=== PATIENT | female | born 1940 | race Caucasian/White ===

== ENCOUNTER 2016-07-08 05:57 | Day surgery (SDC) | payer MEDICARE, OTHER ==
[~2016-07-08] VITALS: Ht 175.3 cm; Wt 65.8 kg
[~2016-07-08 05:57] MED LIST: BACLOFEN10 MG PO; BISOPROLOL-HCT1 EAC1 PO; CEFUROXIME250 MG PO; COLACE100 MG PO; COMBIVENT RESPIM4 GM INH; EVISTA60 MG PO; GABAPENTIN100 MG PO; K-DUR20 MEQ PO; LASIX40 MG PO; NEXIUM40 MG PO; OXYCODONE HCL5 MG PO; PROAIR HFA8.5 GM INH; ROBAXIN500 MG PO; ULTRAM50 MG PO; VITAMIN D3400 UNI1 PO; ZIAC 2.5/6.25 M1 TAB PO; ZOLOFT50 MG PO
[2016-07-08 07:16] LABS: BASOPHILS 0.3 % (0.0-2.0); EOSINOPHILS 0.3 % (0-7); HEMOGLOBIN 12.5 g/dL (12-16); IMMATURE GRANULOCYTES 0.6 % (0-5); LYMPHOCYTES 36.4 % (15-50); MCH 28.5 pg (26.0-34.0); MCHC 32.9 g/dL (31.0-37.0); MCV 86.8 fL (80.0-100.0); MEAN PLATELET VOLUME 10.9 fL (7.4-10.4); MONOCYTES 12.1 % (2-11); NEUTROPHILS 50.3 % (40-80); PLATELET COUNT 181 10x3/uL (130-400); RBC 4.38 10x6/uL (4.00-5.40); RDW 14.2 % (11.5-14.5); WBC 3.2 10x3/uL (4.8-10.8)
[2016-07-08 07:24] LABS: ANION GAP 12.1 mmol/L (8-16); CALCIUM 9.1 mg/dL (8.5-10.1); CARBON DIOXIDE 29.7 mmol/L (21.0-32.0); CREATININE - SERUM 0.8 mg/dL (0.6-1.3); POTASSIUM - SERUM 3.8 mmol/L (3.5-5.1)
[2016-07-08 07:33] VITALS: BP 141/68; Ht 175.3 cm; Wt 65.8 kg
[2016-07-08] MEDS ORDERED: HYDROCODONE-APA1 TAB PO (10:12)
--- NOTE | 2016-07-11 13:33 | OP ---
PATIENT NAME: ELIDA MCKEON MEDICAL RECORD: [id number] :42 LOCATION:D.OPS ADMISSION DATE: SURGEON: SUSHIL BARROS MD DATE OF OPERATION: 07/08/2016 PREOPERATIVE DIAGNOSES: 1. Right lower quadrant incisional hernia. 2. Chronic obstructive pulmonary disease. 3. Hypertension. 4. Osteoporosis. 5. Arthritis. 6. History of deep venous thrombosis. POSTOPERATIVE DIAGNOSES: 1. Right inguinal hernia. 2. Right lower quadrant incisional hernia. 3. Chronic obstructive pulmonary disease. 4. Hypertension. 5. Osteoporosis. 6. Arthritis. 7. History of deep venous thrombosis. PROCEDURE: Right inguinal hernia repair with medium PHS mesh. SURGEON: Sushil Barros MD REPORT OF PROCEDURE: The patient's right groin was prepped and draped in sterile fashion. The patient had an oblique incision in the right lower quadrant already from previous open appendectomy. We used the medial aspect of this incision as we dissected through the subcutaneous tissues, we got down to the fascia. I could see that we were actually overlying the patient's inguinal canal. I undermined the subcutaneous tissues overlying the fascia in all directions just to assure there were no other signs of any hernia defects through the anterior abdominal wall and I saw none. I opened up the inguinal canal from the external opening laterally and once inside, I was able to feel that the patient had a moderate sized indirect hernia defect. The patient's round ligament was elevated. This was ligated proximally and distally. As I elevated this through the wound, I could feel the hernia sac. The round ligament and hernia sac were pushed back down into the abdominal cavity. The preperitoneal space of Retzius was opened up in all directions and a medium PHS mesh was inserted, it was sutured down with a running 0 Vicryl from the pubic symphysis along the inguinal ligament. We then placed multiple interrupted sutures on the shelving edge again using 0 Vicryls. Any evidence of nerve structure which was found in the area was ligated. Two separate nerves were definitively found and were felt to be branches of the ilioinguinal nerve. We then irrigated out the wound with normal saline and assured there was no sign of any bleeding. The external oblique fascia was then closed with running 2-0 Vicryl, Rhoda's was closed with interrupted 3-0 Vicryls and the skin was closed with running subcutaneous 5-0 Monocryl. A 10 mL of 0.25% Marcaine with epinephrine were infused into the surrounding tissues and the wound was dressed appropriately. COMPLICATIONS: None. CONDITION: Stable. OPERATIVE REPORT [id number] ELIDA MCKEON ANESTHESIA: General endotracheal and local. BLOOD LOSS: Minimal. TRANSINT:[id number] Voice Confirmation ID: [id number] DOCUMENT ID: [id number] SUSHIL BARROS MD at 1333 CC: LAYNE GARZA M.D.,[facility] and ABBIE MCMAHON DO [id number] DICTATION DATE: 07/08/16 1017 DRUPAL PHP DEVELOPER: 07/08/16 1212 [facility] 07/08/16 [id number] [place] [address]
== END 2016-07-08 14:35 | disposition home or self-care (01) ==
LOC: D.OPS 05:57 → D.PAN 08:45 → D.OPS 08:45
PROVIDERS: Surgery
DX: K40.90 Unilateral inguinal hernia, without obstruction or gangrene, not specified as recurrent (principal); K43.2 Incisional hernia without obstruction or gangrene; J44.9 Chronic obstructive pulmonary disease, unspecified; I10 Essential (primary) hypertension; M81.0 Age-related osteoporosis without current pathological fracture; M19.90 Unspecified osteoarthritis, unspecified site; Z86.718 Personal history of other venous thrombosis and embolism

== ENCOUNTER → 2016-07-09 16:05 | Outpatient (CLI) | payer MEDICARE, OTHER ==
[2016-07-08 07:33] VITALS: BMI 21.4
[~2016-07-09 16:05] MED LIST changes: +HYDROCODONE-APA1 TAB PO
== END | disposition home or self-care (01) ==
LOC: D.US 15:30
DX: G89.18 Other acute postprocedural pain (principal); M79.605 Pain in left leg; M79.604 Pain in right leg

== ENCOUNTER → 2016-11-26 17:02 | Outpatient (CLI) | payer MEDICARE, OTHER ==
[2016-07-08 07:33] VITALS: BMI 21.4
== END | disposition home or self-care (01) ==
LOC: D.MAMMO 16:00
DX: Z12.31 Encounter for screening mammogram for malignant neoplasm of breast (principal)

== ENCOUNTER → 2016-12-08 14:53 | Outpatient (CLI) | payer MEDICARE, OTHER ==
[2016-07-08 07:33] VITALS: BMI 21.4
[2016-12-08 15:23] LABS: BASOPHILS 0.3 % (0-2); HEMATOCRIT 39.3 % (36.0-48.0); IMMATURE GRANULOCYTES 0.3 % (0-5); LYMPHOCYTES 32.1 % (15-50); MCH 29.5 pg (26.0-34.0); MCHC 33.1 g/dL (31.0-37.0); MCV 89.1 fL (80.0-100.0); MEAN PLATELET VOLUME 11.4 fL (7.4-10.4); MONOCYTES 8.9 % (2-11); NEUTROPHILS 57.4 % (40-80); PLATELET COUNT 193 10x3/uL (130-400); RBC 4.41 10x6/uL (4.00-5.40); RDW 13.8 % (11.5-14.5); WBC 3.2 10x3/uL (4.8-10.8)
[2016-12-08 16:44] LABS: ERYTHROCYTE SEDIMENTATION RATE 10 mm/hr (0-30)
== END | disposition home or self-care (01) ==
LOC: D.LABREF 14:53
PROVIDERS: Orthopaedic Surgery
DX: M25.511 Pain in right shoulder (principal)

== ENCOUNTER → 2016-12-31 09:24 | Outpatient (CLI) | payer MEDICARE, OTHER ==
[2016-07-08 07:33] VITALS: BMI 21.4
== END | disposition home or self-care (01) ==
LOC: D.RAD 09:24
DX: R13.10 Dysphagia, unspecified (principal)

== ENCOUNTER 2017-03-06 09:47 | Emergency (ER) | payer MEDICARE, OTHER ==
[2016-07-08 07:33] VITALS: BMI 21.4
== END 2017-03-06 14:08 | disposition home or self-care (01) ==
LOC: D.ER 09:47
DX: S60.812A Abrasion of left wrist, initial encounter (principal); W01.0XXA Fall on same level from slipping, tripping and stumbling without subsequent striking against object, initial encounter; Y93.89 Activity, other specified; Y92.029 Unspecified place in mobile home as the place of occurrence of the external cause; S40.011A Contusion of right shoulder, initial encounter; S20.229A Contusion of unspecified back wall of thorax, initial encounter; S60.212A Contusion of left wrist, initial encounter; S42.411A Displaced simple supracondylar fracture without intercondylar fracture of right humerus, initial encounter for closed fracture; F17.200 Nicotine dependence, unspecified, uncomplicated

== ENCOUNTER → 2017-03-09 10:00 | Outpatient (CLI) | payer MEDICARE, OTHER ==
[2016-07-08 07:33] VITALS: BMI 21.4
== END | disposition home or self-care (01) ==
LOC: D.CT 10:00
DX: M25.521 Pain in right elbow (principal)

== ENCOUNTER 2017-03-18 10:33 | Emergency (ER) | payer MEDICARE, OTHER ==
[2016-07-08 07:33] VITALS: BMI 21.4
== END 2017-03-18 11:41 | disposition home or self-care (01) ==
LOC: D.ER 10:33
DX: M79.621 Pain in right upper arm (principal); R60.9 Edema, unspecified

== ENCOUNTER → 2017-03-23 08:25 | Outpatient (CLI) | payer MEDICARE, OTHER ==
[2016-07-08 07:33] VITALS: BMI 21.4
== END | disposition home or self-care (01) ==
LOC: D.RAD 03-19 10:30
DX: R10.13 Epigastric pain (principal); R12 Heartburn

== ENCOUNTER → 2017-06-18 10:02 | Outpatient (CLI) | payer MEDICARE, OTHER ==
[2016-07-08 07:33] VITALS: BMI 21.4
== END | disposition home or self-care (01) ==
LOC: D.MRI 10:02
DX: M54.12 Radiculopathy, cervical region (principal)

== ENCOUNTER 2017-10-24 20:26 | Emergency (ER) | payer MEDICARE, OTHER ==
[~2017-10-24] VITALS: Ht 175.3 cm; Wt 65.5 kg
[2017-10-24 20:51] VITALS: Ht 175.3 cm; Wt 65.5 kg
[2017-10-24] MEDS ORDERED: ROBAXIN500 MG PO (23:27)
[2017-10-24 23:42] VITALS: BP 118/74
== END 2017-10-24 23:41 | disposition home or self-care (01) ==
LOC: D.ER 20:26
DX: S60.212A Contusion of left wrist, initial encounter (principal); W22.8XXA Striking against or struck by other objects, initial encounter; Y93.89 Activity, other specified; Y92.019 Unspecified place in single-family (private) house as the place of occurrence of the external cause; I10 Essential (primary) hypertension; J44.9 Chronic obstructive pulmonary disease, unspecified

== ENCOUNTER → 2017-11-13 14:29 | Outpatient (CLI) | payer MEDICARE, OTHER ==
[2017-10-24 20:51] VITALS: BMI 21.3
== END | disposition home or self-care (01) ==
LOC: D.MRI 14:29
DX: S52.531A Colles' fracture of right radius, initial encounter for closed fracture (principal)

== ENCOUNTER → 2018-11-10 13:15 | Outpatient (CLI) | payer MEDICARE, OTHER ==
[2017-10-24 20:51] VITALS: BMI 21.3
== END | disposition home or self-care (01) ==
LOC: D.CT 13:15 → D.MAMMO 15:00
PROVIDERS: ATTEND Family Medicine
DX: Z12.31 Encounter for screening mammogram for malignant neoplasm of breast (principal); R59.0 Localized enlarged lymph nodes

== ENCOUNTER → 2018-11-26 11:02 | Outpatient (CLI) | payer MEDICARE, OTHER ==
[2017-10-24 20:51] VITALS: BMI 21.3
== END | disposition home or self-care (01) ==
LOC: D.US 11:02
PROVIDERS: ATTEND Surgery
DX: R59.0 Localized enlarged lymph nodes (principal); I99.8 Other disorder of circulatory system

== ENCOUNTER 2018-12-10 05:18 | Day surgery (SDC) | payer MEDICARE, OTHER ==
[~2018-12-10] VITALS: Ht 175.3 cm; Wt 68.9 kg
[~2018-12-10 05:18] MED LIST changes: +[UNRECOGNIZED DRUG - OTHER]
[2018-12-10 05:42] LABS: HEMATOCRIT 39.1 % (36.0-48.0); HEMOGLOBIN 13.2 g/dL (12-16); MCH 30.3 pg (26.0-34.0); MCHC 33.8 g/dL (31.0-37.0); MCV 89.9 fL (80.0-100.0); MEAN PLATELET VOLUME 10.6 fL (7.4-10.4); RBC 4.35 10x6/uL (4.00-5.40); RDW 13.8 % (11.5-14.5); WBC 3.6 10x3/uL (4.8-10.8)
[2018-12-10] MEDS ORDERED: MULTI-DAY VITAM1 TAB PO (06:23)
[2018-12-10 06:27] VITALS: BP 153/52; Ht 175.3 cm; Wt 68.9 kg
[2018-12-10] MEDS ORDERED: HYDROCODON-ACE1 EA10 PO (08:39)
--- NOTE | 2018-12-10 09:52 | NUR ---
0930 PT STATES THAT HER PAIN LEVEL IS CURRENTLY AT 5 AND SHE IS REQUESTING PAIN MEDICATION.
--- NOTE | 2018-12-10 11:33 | NUR ---
1048 PT UP TO BATHROOM WITH MINIMAL ASSISTANCE.
--- NOTE | 2018-12-10 11:34 | NUR ---
1106 IV DC'D. CATHETER INTACT. NO BLEEDING AT SITE. BANDAID APPLIED.
--- NOTE | 2018-12-10 12:15 | OP ---
PATIENT NAME: ELIDA MCKEON MEDICAL RECORD: [id number] :41 LOCATION:D.OPS ADMISSION DATE: SURGEON: MELINA BARROS MD DATE OF OPERATION: 12/10/2018 PREOPERATIVE DIAGNOSES: 1. Right inguinal bulge/cyst. 2. Chronic obstructive pulmonary disease. 3. Hypertension. POSTOPERATIVE DIAGNOSES: 1. Right inguinal lymphadenopathy. 2. Right femoral hernia. 3. Chronic obstructive pulmonary disease. 4. Hypertension. PROCEDURE: 1. Excision of right inguinal lymph node. 2. Right femoral hernia repair. SURGEON: Melina Barros MD REPORT OF PROCEDURE: The patient's right groin was prepped and draped in sterile fashion. An oblique incision was made overlying the area of tenderness. Electrocautery was used to dissect through the subcutaneous tissues and we encountered an enlarged lymph node. The lymph node was excised using electrocautery and sent off for permanent specimen. The lymph node itself was about 1.5 cm in greatest diameter. As we inspected the space, I could see there was a small fatty bulge present. As we cleared this off, we could see this was a femoral hernia. This had a tight opening at its base. We were eventually able to reduce this hernia and push it back into position. The hernia defect was inspected and I felt around for the vasculature and could not feel it. The hernia defect was then reapproximated transversely using interrupted 0 Prolenes by trying to connect any fascial tissue that was present. At the conclusion of this, we used 4 sutures and there was good approximation of the tissue and the hernia orifice was obliterated. We then irrigated out the wound with normal saline and assured there was no sign of any bleeding. The subcutaneous tissues were reapproximated with interrupted 3-0 Vicryl and the skin was closed with running subcutaneous 5-0 Monocryl. COMPLICATIONS: None. CONDITION: Stable. ANESTHESIA: General endotracheal and local. BLOOD LOSS: Minimal. TRANSINT:[id number] Voice Confirmation ID: [id number] DOCUMENT ID: [id number] OPERATIVE REPORT [id number] ELIDA MCKEON MELINA BARROS MD at 1215 CC: ABBIE MCMAHON [id number] DICTATION DATE: 12/10/18 0847 TEMPERING KILN TENDER: 12/10/18 0901 [facility] 12/10/18 [facility] [address] [place] [address]
== END 2018-12-10 11:28 | disposition home or self-care (01) ==
LOC: D.OPS 05:18 → D.PAN 08:00 → D.OPS 11:28
PROVIDERS: Anesthesiology; ATTEND Surgery
DX: R59.0 Localized enlarged lymph nodes (principal); K41.90 Unilateral femoral hernia, without obstruction or gangrene, not specified as recurrent; J44.9 Chronic obstructive pulmonary disease, unspecified; I10 Essential (primary) hypertension; Z01.812 Encounter for preprocedural laboratory examination

== ENCOUNTER → 2019-02-07 18:24 | Outpatient (CLI) | payer MEDICARE, OTHER ==
[2018-12-10 06:27] VITALS: BMI 22.5
[~2019-02-07 18:24] MED LIST changes: +HYDROCODON-ACE1 EA10 PO; +MULTI-DAY VITAM1 TAB PO
== END | disposition home or self-care (01) ==
LOC: D.LABREF 18:24
PROVIDERS: ATTEND Urology
DX: N39.0 Urinary tract infection, site not specified (principal)

== ENCOUNTER 2019-03-10 09:16 | Inpatient (IN) | payer MEDICARE, OTHER ==
[~2019-03-10] VITALS: Ht 170.2 cm; Wt 77.3 kg
[2019-03-10 09:43] LABS: BASOPHILS 0.3 % (0-2); HEMATOCRIT 40.9 % (36.0-48.0); HEMOGLOBIN 13.6 g/dL (12-16); LYMPHOCYTES 31.9 % (15-50); MCH 30.3 pg (26.0-34.0); MCHC 33.3 g/dL (31.0-37.0); MCV 91.1 fL (80.0-100.0); MEAN PLATELET VOLUME 10.5 fL (7.4-10.4); MONOCYTES 11.1 % (2-11); NEUTROPHILS 55.7 % (40-80); PLATELET COUNT 177 10x3/uL (130-400); RBC 4.49 10x6/uL (4.00-5.40); RDW 13.3 % (11.5-14.5); WBC 3.1 10x3/uL (4.8-10.8)
[2019-03-10 09:49] LABS: ANION GAP 10.7 mmol/L (8-16); CALCIUM 9.5 mg/dL (8.5-10.1); CARBON DIOXIDE 29.5 mmol/L (21.0-32.0); CREATININE - SERUM 0.8 mg/dL (0.6-1.3); POTASSIUM - SERUM 4.2 mmol/L (3.5-5.1)
[2019-03-10 10:34] VITALS: BP 166/84; BMI 23.7
--- NOTE | 2019-03-10 17:06 | OP ---
PATIENT NAME: ELIDA MCKEON MEDICAL RECORD: [id number] :41 LOCATION:D.OPS ADMISSION DATE: SURGEON: SUDHIR DUVALL MD DATE OF OPERATION: 03/10/2019 SURGEON: Sudhir Duvall MD ANESTHESIA: General anesthesia by Joshua Caromna CRNA DIAGNOSES: 1. Female stress urinary incontinence. 2. 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 3. Rectocele Tupelo-Walker grade II with incomplete rectal evacuation. PROCEDURES: 1. Cystoscopy. 2. Pubovaginal sling with [employer] Obtryx mesh graft. 3. Cystocele repair using 8 x 12 cm Coloplast axis cadaveric dermis. 4. Rectocele repair by levator ani muscle plication. FINDINGS: On cystoscopy, single ureteral orifices bilaterally. No bladder tumors. No bladder injury. ESTIMATED BLOOD LOSS: Minimal. CLINICAL HISTORY: This is a 78-year-old female, G3, P3, A0, who is post-hysterectomy. She had a hysterectomy at age 32 and a cystocele repair at age 37. She has issues with recurrent urinary tract infections 4-5 per year. She also has daytime urinary frequency as well as nocturia and urge incontinence. She also describes stress urinary incontinence. She has difficulty emptying her bladder. With respect to the bowels, there is no fecal incontinence, but she has the feeling that she does not fully empty the rectum after defecation. She has chronic constipation for which she uses Colace. On physical examination, she had a vulvar atrophy. She had a hypermobile urethra with stress urinary incontinence when she coughed. There is a positive Cholo test. There is also a midline cystocele Tupelo-Walker grade II and a Tupelo-Walker grade II rectocele. Her postvoid residual was 263 mL. She comes now to have a cystocele repair in order to lift the bladder back up to the correct axis to help with bladder emptying. She will also be having a pubovaginal sling to correct the stress urinary incontinence. Finally, she will have a rectocele repair. Risks of mesh use in the pubovaginal sling include graft infection, graft erosion, graft extrusion into the vagina, dyspareunia and pelvic pain. Adverse potential outcomes include urinary retention, persistence of incomplete bladder emptying, exacerbation of urge urinary incontinence, and persistence of stress incontinence. She wishes to proceed with surgery. SHE IS ALLERGIC TO ASPIRIN AND MORPHINE. She was given Ancef 2 grams IV supervisor dehydrogenation to the OR. DESCRIPTION OF PROCEDURE: The patient was given induction of general anesthesia in supine position. She was then placed in the lithotomy position and prepped and draped. A weighted speculum was used to hold the posterior vaginal wall down. The Elena catheter was placed into the bladder and put to bag drainage. A #1 nylon stay sutures were used to hold the labia majora laterally. These were anchored to the medial thighs. The anterior vaginal wall shows some scarring from her previous surgery. The anterior vaginal wall was infiltrated OPERATIVE REPORT [id number] ELIDA MCKEON with vasopressin solution. Twenty units of vasopressin was dissolved in 100 mL of injectable normal saline. This was used for hydrodissection. A transverse incision was then made at the level of the bladder neck. The dissection was performed using Metzenbaum scissors. We cut through the scar tissue under the urethra and at the level of the bladder neck. We went laterally to perforate through the pubocervical ligaments. Anteriorly, we entered into the space of Retzius. This was cleared. Posteriorly, we entered the presacral space with the ischial spines and the attached sacrospinous ligaments. We then put our four 2-0 Prolene Capio suspensory sutures in. The posterior pair went through the sacrospinous ligament, 1 cm medial to the ischial spines. The purpose of keeping the placement 1 cm to the ischial spine was to avoid hitting the internal pudendal artery and nerves. The anterior pair of suspensory sutures went into Musa's ligament. These 4 suspensory sutures were then placed. We then landmarked the location of the transobturator passage of the [employer] Obtryx graft. The insertion of the adductor longus muscle onto the descending pubic ramus was identified. Inferior to the body of the adductor longus muscle, a armin was made lateral to the descending pubic ramus with a marking pen. A stab incision was made here. The helical trocars were passed through this incision, deep to the descending pubic ramus and exiting at the anterior margin of the obturator membrane. The tip of the helical trocar then came out through the vaginal dissection space. Here the end of the graft was attached to the helical trocar. The helical trocars were then withdrawn, resulting in transobturator passage of the graft arms. There was a tab indicating the midpoint of the graft. This tab was placed under the mid urethra. At this point, the tab was then cut off by cutting its retaining stitch. The Elena catheter was removed. We performed cystoscopy using a 17-Australian cystoscope. No bladder injury was identified. No bladder tumors were seen. The bladder was filled with normal saline. By putting pressure suprapubically, we could see leakage of urine per the urethra. We gradually increased the tension on the graft until there was very minimal leakage per the urethra with suprapubic pressure. I tried not to completely occlude the urethra as she already has an issue with incomplete bladder emptying. At this point, the 8 x 12 cadaveric dermis graft for the cystocele repair was pulled out of its package. I marked out an arch on one of the long edges of the graft. This apex of the arch was 6 cm distance from the opposite edge of the graft. This arch serves to prevent occlusion of the rectum, which great difficulty with defecation. The graft was then hydrated in saline containing gentamicin solution. The four arms of the graft were placed and had the 4 suspensory sutures placed through. The graft was then tied down into position. The graft arms of the pubovaginal sling were cut where they exited the skin. The inguinal incisions for the graft arms were closed using simple interrupted 4-0 Vicryl. Running 4-0 Monocryl was used to close the transverse anterior vaginal incision. This completed the pubovaginal sling and cystocele repair. I placed a Elena catheter back into the bladder to drain the bladder during the rest of the surgery. For the rectocele repair, the posterior vaginal wall was infiltrated with Pitressin solution. An elliptical excision line was marked out with 1 apex of the ellipse at the vaginal introitus posteriorly. This area was cut out using a #15 blade and undermined using Metzenbaum scissors. The edges of this incision were then undermined using Metzenbaum scissors, which developed the plane between the anterior surface of the rectum and the undersurface of the posterior vaginal wall. We continued the dissection cranially and also laterally on each side. Using blunt dissection with the fingers, the levator ani muscles on OPERATIVE REPORT [id number] ELIDA MCKEON either side of the rectum were exposed. A 2-0 Prolene sutures were then placed using the [employer] suture route cdl driver through the levator ani muscles. This formed a horizontal mattress when tied. I started at the most cranial portion of our dissection. Once this suture was tied down, then four other sutures were placed successively closer to the vaginal introitus. The last suture actually reconstructed the perineal body. With these mattress sutures having been placed and tied down, the posterior vaginal wall was closed using running 4-0 Monocryl. Vaginal packing consisting of 2-inch Kerlix infiltrated with estrogen cream was placed into the vagina. This will be removed prior to her going home today. The Elena catheter was removed. This was for a voiding trial. The stay sutures were removed. The patient was awakened and brought to the recovery room. TRANSINT:[id number] Voice Confirmation ID: [id number] DOCUMENT ID: [id number] SUDHIR DUVALL MD at 1706 CC: [id number] DICTATION DATE: 03/10/19 161 STAMPING MACHINE OPERATOR: 03/10/19 1704 [facility] [address] [id number]
--- NOTE | 2019-03-10 18:55 | NUR ---
RECEIEVED FROM OP DEPT. ALERT AND ORIENTED X4. ACCOMPANIED BY FRIEND. PT LIVES ALONE. RESP EVEN AND NONLABORED. V/S STABLE. DENIES PAIN. REPORTS SOME NAUSEA, MEDICATED WITH ZOFRAN PRIOR TO ARRIVING. BRUISES NOTED TO BUE AND BUE ARE DISCOLORED BROWNISH AND DRY/WRINKLED. LR @ 30 ML/HR INFUSING IN LT FOREARM WITHOUT DIFF. DISPOSABLE PANTIES ON AND SANITARY PAD WITH BLOOD TINGED DRAINAGE NOTED. PAD CHANGED AT THIS TIME. SR ELEVATED X2. CL IN REACH.
--- NOTE | 2019-03-10 19:17 | NUR ---
[address] DUVALL VIA PHONE. NEW ORDERS NOTED FOR 23 HOUR OBSERVATION AND PAIN MANAGEMENT. PT REMAINS DROWSY AND REPORTS PAIN 10. SLEEPING.
[2019-03-10 21:15] VITALS: BP 141/62; BMI 26.7
[2019-03-10 23:47] VITALS: BP 136/72
--- NOTE | 2019-03-11 00:04 | NUR ---
HAS BEEN UP TO BR TO VOID A COUPLE OF TIMES. SMALL AMOUNT OF URINE NOTED, APPROX 50 ML ALONG WITH BLOODY VAGINAL DRAINAGE. STATES SHE FEELS LIKE HER BLADDER ISNT EMPTYING. REPORTS AFTER LAST SURGERY SHE HAD TO HAVE A CATHETER FOR 8 WEEKS.
--- NOTE | 2019-03-11 02:00 | NUR ---
PT C/O PAIN IN BLADDER AND STATES SHE FEELS LIKE BLADDER IS FULL. BLADDER SCAN PERFORMED AND 814 ML NOTED. DAREK SCHAFFER HAD REPORTED TO THIS DIRECTOR OF CAMPUS RECREATION THAT DR DUVALL SAID PT COULD HAVE HA CATH IF UNABLE TO VOID/RETENTION. 16 FR HA CATH INSERTED WITH IMMEDIATE RETURN OF 875 ML OF CLEAR YELLOW URINE. PT ARABELLA WELL AND STATES SHE ISNT HURTING NOW. WILL CONT TO MONITOR.
[2019-03-11 04:00] VITALS: BP 145/68
--- NOTE | 2019-03-11 04:10 | NUR ---
RESTING QUIETLY. NO DISTRESS. HA CATH PATENT AND DRAINING CLEAR YELLOW URINE. CL IN REACH.
--- NOTE | 2019-03-11 07:10 | NUR ---
REPORT RECEIVED FROM MUSEUM PREPARATOR AND PATIENT CARE ASSUMED. PATIENT LAYING IN BED ON BACK AWAKE, ALERT AND ORIENTED X 4. PATIENT STATES THAT SHE IS VERY SORE IN HER RECTAL AND PERINEAL AREA. PATEINT DECLINES PAIN RX AT THIS TIME. WILL CONTINUE WITH PLAN OF CARE. SR UP X 2 BED IN LOW POSITION AND CALL LIGHT IN REACH.
[2019-03-11 08:00] VITALS: BP 138/84
--- NOTE | 2019-03-11 09:15 | NUR ---
CALLED TO PATIENTS ROOM. PATIENT STATES THAT SHE IS HURTING AT A '10" AND ALSO STATES THAT SHE CANNOT BE DCD TODAY BECAUSE OF HER PAIN , WEAKNESS AND SHE LIVES ALONE. TOLD PATIENT THAT I WOULD INFORM PHYSICIAN AND EMS DRIVER. MEDICATED PATIENT PER MAR WITH DILAUDED IV AND REPOSITIONED FOR COMFORT. SR UP X 2 BED IN OW POSITION AND CALL LIGHT IN REACH.
--- NOTE | 2019-03-11 10:00 | NUR ---
PATIENT LAYING IN BED ON BACK WITH EYES CLOSED AND BREATHING EVENLY. WILL CONTINUE TO MONITOR. SR UP X 2 BED IN LOW POSITION AND CALL LIGHT INR EACH.
[2019-03-11 11:30] VITALS: BP 140/87
--- NOTE | 2019-03-11 12:15 | NUR ---
PATIENT STATED EARLIER THIS AM THAT SHE FEELS TOO WEAK AND IN TOO MUCH PAIN TO BE DCD TO HOME FOR SELF CARE. PATIENT STATES THAT SHE LIVES ALONE AND WOULD NOT BE ABLE TO TAKE CARE OF HERSELF. PATIENT MET WITH JESICA CELL PREPARER AND JESICA AGREED THAT PATIENT IS NOT SAFE TO GO HOME TO BE ABLE TO CARE FOR HERSELF. CALLED AND SPOKE WITH DR DUVALL ON PHONE. INFORMED DR DUVALL OF SITUATION. DR DUVALL STATED TO DC DISCHARGE ORDER AND CONSULT MEDICAL. THIS NURSE INFORMED THAT DR BOYD ON THIS WEEK. V/O RECEIVED TO CONSULT DR BOYD. SPOKE WITH ROBERTO FRYE ON PHONE AND INFORMED OF CONSULT. AFTER PHONE CALL, DR BOYD ON UNIT AND INFORMED HIM WELL.
--- NOTE | 2019-03-11 14:00 | NUR ---
PATIENT COMPLAINS OF PAIN AND NUASEA. MEDICATED PER MAR WITH DILAUDED AND ZOFRAN IV. PATIENT TOLERATED WELL. WILL CONTINUE TO MONITOR. SR UP X 2 BED N LOW POSITION AND CALL LIGHT IN REACH.
--- NOTE | 2019-03-11 14:45 | NUR ---
PATIENT LAYING IN BED ON BACK WITH EYES CLOSED AND BREATHING EVENLY. WILL CONTINUE TO MONITOR. SR UP X 2 BED IN LOW POSITION AND CALL LIGHT IN REACH.
[2019-03-11 16:30] VITALS: BP 136/78
--- NOTE | 2019-03-11 17:55 | MORECARE ---
CASE MANAGEMENT DISCHARGE SUMMARY PATIENT: EILDA MCKEON UNIT: [id number] ADM DATE: 03/11/19 AGE: 78 : 41 SEX: F ROOM/BED: D.1211 AUTHOR: SANTA DIALLO PHYSICIAN: REFERRING PHYSICIAN: SUDHIR DUVALL MD DATE OF SERVICE: 03/11/19 Discharge Plan Patient Name: ELIDA MCKEON [facility] [facility] 1940 Planned Disposition: Anticipated Discharge Date: Discharge Date: Expected LOS: Initial Reviewer: [email or web address] Initial Review Date: 03/10/2019 Generated: 03/11/19 6:55 pm DCPIA - Discharge Planning Initial Assessment Updated by [email or web address]: Kailee Gomes on 03/11/19 5:54 pm * Is the patient Alert and Oriented? Yes * How many steps to enter\exit or inside your home? * PCP [facility] * Pharmacy [facility] * Preadmission Environment Home with Family * ADLs Independent * Other Equipment WALKER, CANE * List name and contact numbers for known caregivers / representatives who currently or will assist patient after discharge: NAIDA MCKEON - SON - [phone], * Verbal permission to speak to the caregivers and representatives has been obtained from the patient. No * Community resources currently utilized None * Additional services required to return to the preadmission environment? No * Can the patient safely return to the preadmission environment? Yes * Has this patient been hospitalized within the prior 30 days at any hospital? No Patient Name: ELIDA MCKEON Page [phone] at 1755 All edits/amendments must be made on the electronic document DICTATION DATE: 03/11/191754 OUTSIDE PLANT SUPERVISOR: ANDRES 03/11/191754 RPT#: [id number] DC DATE: STATUS: ADM IN [facility] [address] [place] [address] END OF REPORT
--- NOTE | 2019-03-11 18:01 | NUR ---
PATIENT IS STABLE AND VSS. PATIENT DENIES ANY NEEDS OR PAIN. WILL CONTINUE TO MONITOR. SR UP X 2 BED IN LOW POSITION AND CALL LIGHT IN REACH.
--- NOTE | 2019-03-11 18:04 | MORECARE ---
CASE MANAGEMENT DISCHARGE SUMMARY PATIENT: ELIDA MCKEON UNIT: [id number] ADM DATE: 03/11/19 AGE: 78 : 41 SEX: F ROOM/BED: D.1211 AUTHOR: SANTA DIALLO PHYSICIAN: REFERRING PHYSICIAN: SUDHIR DUVALL MD DATE OF SERVICE: 03/11/19 Discharge Plan Patient Name: ELIDA MCKEON Facility: [facility]:[place] : 1940 Planned Disposition: Anticipated Discharge Date: Discharge Date: Expected LOS: Initial Reviewer: [email or web address] Initial Review Date: 03/10/2019 Generated: 03/11/19 7:04 pm Comments DCP- Discharge Planning Updated by [email or web address]: Kailee Gomes on 03/11/19 4:[address] Patient Name: EILDA MCKEON Admission Status: Elective Accout number: [id number] Admission Date: 03-11-2019 : 1940 Admission Diagnosis: Attending: JUSTIN DUVALL Current LOS: 1 Anticipated DC Date: Planned Disposition: Primary Insurance: MEDICARE A & B Discharge Planning Comments: CM met with patient to complete initial dc planning assessment. CM educated patient on the CM role and verbal consent given by patient to complete assessment. Patient lives at home alone where she is independent with her care. At discharge patient plans to return home and feels this is a safe discharge. CM discussed availability of home health, rehab services, and medical equipment. Her family will drive her home. Patient denied known discharge needs at this time. CM will continue to follow and will assist as needed with dc plans/needs. Dairy Science Teacher: Kailee Gomes DCPIA - Discharge Planning Initial Assessment Updated by [email or web address]: Kailee Gomes on 03/11/19 5:54 pm * Is the patient Alert and Oriented? Yes * How many steps to enter\exit or inside your home? * PCP [facility] * Pharmacy [facility] [address] * Preadmission Environment Home with Family * ADLs Independent * Other Equipment WALKER, CANE * List name and contact numbers for known caregivers / representatives who currently or will assist patient after discharge: NAIDA MCKEON - SON - [phone], * Verbal permission to speak to the caregivers and representatives has been obtained from the patient. No * Community resources currently utilized None * Additional services required to return to the preadmission environment? No * Can the patient safely return to the preadmission environment? Yes * Has this patient been hospitalized within the prior 30 days at any hospital? No Last DP export: 03/11/19 4:56 Patient Name: ELIDA MCKEON Page [phone] at 1804 All edits/amendments must be made on the electronic document DICTATION DATE: 03/11/191802 ELECTRIC SERVICEMAN: ANDRES 03/11/191802 RPT#: [id number] DC DATE: STATUS: ADM IN [facility] [address] [place] [address] END OF REPORT
[2019-03-11 19:50] VITALS: BP 129/51
--- NOTE | 2019-03-11 20:00 | NUR ---
PT ALERT & ORIENTED. NO IV FLUIDS ORDERED, SALINE LOCKED IV. DENIES PAIN AT THIS TIME. COMPLETE ASSESSMENT PER FLOW-SHEET. WILL CONTINUE TO MONITOR.
[2019-03-12 00:01] VITALS: BP 154/71
--- NOTE | 2019-03-12 00:30 | NUR ---
LEFT FOREARM IV LEAKING. REMOVED CATHETER INTACT. RESITED 22G IV TO RIGHT FOREARM 1ST ATTEMPT. NO OTHER NEEDS. WILL CONTINUE TO MONITOR.
[2019-03-12 04:03] VITALS: BP 121/68
--- NOTE | 2019-03-12 07:46 | NUR ---
PT RESTING IN BED, SHIFT ASSESSMENT PERFORMED. REQUESTING SOME PAIN MEDICATION AND NAUSEA MEDICATION TO PROPHYLACTICALLY TREAT NAUSEA ASSOCIATED WITH THE PAIN MEDICATION. PT STATES THE NORCO,"HURTS HER STOMACH" AND SHE IS REQUESTING DILAUDID. PRN DILAUDID AND ZOFRAN GIVEN. CALL LIGHT WITHIN REACH. WILL CONT TO FOLLOW POC
[2019-03-12 07:48] VITALS: BP 160/80
[2019-03-12 09:36] VITALS: Ht 170.2 cm; Wt 77.3 kg
[2019-03-12 09:57] LABS: BASOPHILS 0.2 % (0-2); EOSINOPHILS 0 % (0-7); HEMATOCRIT 33.5 % (36.0-48.0); IMMATURE GRANULOCYTES 0.4 % (0-5); LYMPHOCYTES 14.7 % (15-50); MCH 30.2 pg (26.0-34.0); MCHC 32.8 g/dL (31.0-37.0); MEAN PLATELET VOLUME 10.5 fL (7.4-10.4); MONOCYTES 10.1 % (2-11); NEUTROPHILS 74.6 % (40-80); PLATELET COUNT 152 10x3/uL (130-400); RBC 3.64 10x6/uL (4.00-5.40); RDW 13.1 % (11.5-14.5); WBC 5.4 10x3/uL (4.8-10.8)
[2019-03-12 10:04] LABS: ANION GAP 4.7 mmol/L (8-16); CALCIUM 8.5 mg/dL (8.5-10.1); CREATININE - SERUM 0.8 mg/dL (0.6-1.3); POTASSIUM - SERUM 3.7 mmol/L (3.5-5.1)
--- NOTE | 2019-03-12 13:41 | MORECARE ---
CASE MANAGEMENT DISCHARGE SUMMARY PATIENT: ELIDA MCKEON UNIT: [id number] ADM DATE: 03/11/19 AGE: 78 : 41 SEX: F ROOM/BED: D.1211 AUTHOR: SANTA DIALLO PHYSICIAN: REFERRING PHYSICIAN: SHAISTA BOYD MD DATE OF SERVICE: 03/12/19 Discharge Plan Patient Name: ELIDA MCKEON Facility: [facility]:[place] : 1940 Planned Disposition: Anticipated Discharge Date: Discharge Date: Expected LOS: Initial Reviewer: [email or web address] Initial Review Date: 03/10/2019 Generated: 03/12/19 2:41 pm Comments DCP- Discharge Planning Updated by [email or web address]: Patricia Olvera on 03/12/19 12:[address] DC PLAN: Return home alone. Cm met with patient, DC IMM delivered, explained, signed by the patient, and placed in the chart. Signed form also left with patient. patient returning home alone and denied the need for home health at this time or other community resources. She feels this is a safe discharge. Patricia Olvera RN, [facility] DCP- Discharge Planning Updated by [email or web address]: Kailee Gomes on 03/11/19 4:[address] Patient Name: ELIDA MCKEON Admission Status: Elective Accout number: [id number] Admission Date: 03-11-2019 : 1940 Admission Diagnosis: Attending: JUSTIN DUVALL Current LOS: 1 Anticipated DC Date: Planned Disposition: Primary Insurance: MEDICARE A & B Discharge Planning Comments: CM met with patient to complete initial dc planning assessment. CM educated patient on the CM role and verbal consent given by patient to complete assessment. Patient lives at home alone where she is independent with her care. At discharge patient plans to return home and feels this is a safe discharge. CM discussed availability of home health, rehab services, and medical equipment. Her family will drive her home. Patient denied known discharge needs at this time. CM will continue to follow and will assist as needed with dc plans/needs. Solar Pv Installer: Kailee Gomes DCPIA - Discharge Planning Initial Assessment Updated by [email or web address]: Kailee Gomes on 03/11/19 5:54 pm * Is the patient Alert and Oriented? Yes * How many steps to enter\exit or inside your home? * PCP [facility] * Pharmacy [facility] [address] * Preadmission Environment Home with Family * ADLs Independent * Other Equipment WALKER, CANE * List name and contact numbers for known caregivers / representatives who currently or will assist patient after discharge: NAIDA MCKEON - SON - [phone], * Verbal permission to speak to the caregivers and representatives has been obtained from the patient. No * Community resources currently utilized None * Additional services required to return to the preadmission environment? No * Can the patient safely return to the preadmission environment? Yes * Has this patient been hospitalized within the prior 30 days at any hospital? No Coverage Notice Reviewer: [email or web address] Sabas Olvera Notice Issued Date-Time: 03/12/2019 10:55 Notice Type: IM Discharge Notice Notice Delivered To: Patient Relationship to Patient: Mercury Cell Cleaner Name: Delivery Method: HAND - Hand Delivered Tamiko Days: Prior Verbal Notification: Recipient Understood Notice: Recipient Signature: Med Rec Note Co-signed by Attending: Coverage Notice Comment: Last DP export: 03/11/19 5:04 Patient Name: ELIDA MCKEON Page [phone] at 1341 All edits/amendments must be made on the electronic document DICTATION DATE: 03/12/19 1341 GLUCOSE AND SYRUP WEIGHER: ANDRES 03/12/19 1341 RPT#: [id number] DC DATE: STATUS: ADM IN [facility] [address] [place] [address] END OF REPORT
--- NOTE | 2019-03-12 13:49 | MORECARE ---
CASE MANAGEMENT DISCHARGE SUMMARY PATIENT: ELIDA MCKEON UNIT: [id number] ADM DATE: 03/11/19 AGE: 78 : 41 SEX: F ROOM/BED: D.1211 AUTHOR: SANTA DIALLO PHYSICIAN: REFERRING PHYSICIAN: SHAISTA BOYD MD DATE OF SERVICE: 03/12/19 Discharge Plan Patient Name: ELIDA MCKEON Facility: [facility]:[place] : 1940 Planned Disposition: Anticipated Discharge Date: Discharge Date: Expected LOS: Initial Reviewer: [email or web address] Initial Review Date: 03/10/2019 Generated: 03/12/19 2:48 pm Comments DCP- Discharge Planning Updated by [email or web address]: Patricia Olvera on 03/12/19 12:[address] DC PLAN: Return home alone. Cm met with patient, DC IMM delivered, explained, signed by the patient, and placed in the chart. Signed form also left with patient. patient returning home alone and denied the need for home health at this time or other community resources. She feels this is a safe discharge. Patricia Olvera RN, [facility] DCP- Discharge Planning Updated by [email or web address]: Kailee Gomes on 03/11/19 4:[address] Patient Name: ELIDA MCKEON Admission Status: Elective Accout number: [id number] Admission Date: 03-11-2019 : 1940 Admission Diagnosis: Attending: JUSTIN DUVALL Current LOS: 1 Anticipated DC Date: Planned Disposition: Primary Insurance: MEDICARE A & B Discharge Planning Comments: CM met with patient to complete initial dc planning assessment. CM educated patient on the CM role and verbal consent given by patient to complete assessment. Patient lives at home alone where she is independent with her care. At discharge patient plans to return home and feels this is a safe discharge. CM discussed availability of home health, rehab services, and medical equipment. Her family will drive her home. Patient denied known discharge needs at this time. CM will continue to follow and will assist as needed with dc plans/needs. Surface Mount Technology Operator: Kailee Gomes DCPIA - Discharge Planning Initial Assessment Updated by [email or web address]: Kailee Gomes on 03/11/19 5:54 pm * Is the patient Alert and Oriented? Yes * How many steps to enter\exit or inside your home? * PCP [facility] * Pharmacy [facility] [address] * Preadmission Environment Home with Family * ADLs Independent * Other Equipment WALKER, CANE * List name and contact numbers for known caregivers / representatives who currently or will assist patient after discharge: NAIDA MCKEON - SON - [phone], * Verbal permission to speak to the caregivers and representatives has been obtained from the patient. No * Community resources currently utilized None * Additional services required to return to the preadmission environment? No * Can the patient safely return to the preadmission environment? Yes * Has this patient been hospitalized within the prior 30 days at any hospital? No Coverage Notice Reviewer: [id number] Sabas Olvera Notice Issued Date-Time: 03/12/2019 10:55 Notice Type: IM Discharge Notice Notice Delivered To: Patient Relationship to Patient: Legal Operations Manager Name: Delivery Method: HAND - Hand Delivered Tamiko Days: Prior Verbal Notification: Recipient Understood Notice: Recipient Signature: Med Rec Note Co-signed by Attending: Coverage Notice Comment: Last DP export: 03/11/19 5:04 Patient Name: ELIDA MCKEON Page 28856 at 1349 All edits/amendments must be made on the electronic document DICTATION DATE: 03/12/191347 IN SERVICE EDUCATION TEACHER: ANDRES 03/12/191347 RPT#: [id number] DC DATE: STATUS: ADM IN [facility] [address] [place] [address] END OF REPORT
--- NOTE | 2019-03-12 14:00 | NUR ---
DISCHARGE INSTRUCTIONS REVIEWED WITH PT AND ALL QUESTIONS ANSWERED. PIV REMOVED WITH CATHETER TIP INTACT. PT LEFT WITH FAMILY MEMBER.
== END 2019-03-12 14:49 | disposition home or self-care (01) | DRG 748 ==
LOC: OBSVTIME → D.OPS 09:16 → D.PAN 09:30 → D.OPS 10:45 → D.PAN 10:45 → D.OPS 12:20 → D.M3 19:00 → D.OPS 19:09 → OBSVTIME 19:10 → D.OPS 19:10 → D.M3 19:10
PROVIDERS: Anesthesiology; Urology; ADMIT Internal Medicine Nephrology; ATTEND Internal Medicine Nephrology
PROC: 0TSD4ZZ Reposition Urethra, Percutaneous Endoscopic Approach (ICD-10-PCS; principal; 2019-03-10 12:30)
PROC: 0JUC0KZ Supplement of Pelvic Region Subcutaneous Tissue and Fascia with Nonautologous Tissue Substitute, Open Approach (ICD-10-PCS; 2019-03-10 12:30)
PROC: 0JQC0ZZ Repair Pelvic Region Subcutaneous Tissue and Fascia, Open Approach (ICD-10-PCS; 2019-03-10 12:30)
DX: N39.3 Stress incontinence (female) (male) (principal); N81.10 Cystocele, unspecified; N81.6 Rectocele

== ENCOUNTER 2019-03-14 20:20 | Emergency (ER) | payer MEDICARE, OTHER ==
[~2019-03-14] VITALS: Ht 170.2 cm; Wt 67.3 kg
[2019-03-14 20:27] VITALS: Ht 170.2 cm; Wt 67.3 kg
[2019-03-14] MEDS ORDERED: HYDROCODON-ACE1 EA10 PO (20:30)
[2019-03-14 20:54] LABS: BASOPHILS 0.2 % (0-2); EOSINOPHILS 0.5 % (0-7); HEMATOCRIT 41.8 % (36.0-48.0); HEMOGLOBIN 14.1 g/dL (12-16); IMMATURE GRANULOCYTES 0.3 % (0-5); LYMPHOCYTES 18.8 % (15-50); MCH 30.8 pg (26.0-34.0); MCHC 33.7 g/dL (31.0-37.0); MCV 91.3 fL (80.0-100.0); MEAN PLATELET VOLUME 11.2 fL (7.4-10.4); MONOCYTES 9.8 % (2-11); NEUTROPHILS 70.4 % (40-80); RBC 4.58 10x6/uL (4.00-5.40); RDW 12.9 % (11.5-14.5); WBC 5.9 10x3/uL (4.8-10.8)
[2019-03-14 21:07] LABS: ANION GAP 9.6 mmol/L (8-16); APTT 20.3 SECONDS (22.8-39.4); CALCIUM 10.1 mg/dL (8.5-10.1); CARBON DIOXIDE 33.5 mmol/L (21.0-32.0); CREATININE - SERUM 0.8 mg/dL (0.6-1.3); INR 0.93 (0.85-1.17); POTASSIUM - SERUM 4.1 mmol/L (3.5-5.1)
[2019-03-14 21:09] LABS: PLATELET COUNT 221 10x3/uL (130-400)
[2019-03-14 21:15] LABS: ALBUMIN 3.8 g/dL (3.4-5.0); BILIRUBIN - TOTAL 1.03 mg/dL (0.2-1.3)
[2019-03-14 21:16] LABS: APPEARANCE CLEAR (CLEAR); BILIRUBIN NEGATIVE (NEGATIVE); COLOR YELLOW (YELLOW); GLUCOSE NEGATIVE (NEGATIVE); KETONE LARGE mg/dL (NEGATIVE); NITRITE NEGATIVE (NEGATIVE); PROTEIN NEGATIVE (NEGATIVE); SPECIFIC GRAVITY 1.005 (1.005-1.020); UROBILINOGEN NORMAL (NORMAL)
[2019-03-14 21:17] LABS: BACTERIA FEW /hpf (NEGATIVE); RED CELLS - URINE 0-5 /hpf (0-5); WHITE CELLS - URINE 0-5 /hpf (NEGATIVE)
[2019-03-14] MEDS ORDERED: CHRONULAC30 ML PO (21:49)
[2019-03-14 22:17] VITALS: BP 170/77
== END 2019-03-14 22:18 | disposition home or self-care (01) ==
LOC: D.ER 20:20
PROVIDERS: Emergency Medicine
DX: K59.00 Constipation, unspecified (principal); Z98.890 Other specified postprocedural states; I10 Essential (primary) hypertension; J44.9 Chronic obstructive pulmonary disease, unspecified

== ENCOUNTER → 2019-05-27 15:28 | Outpatient (CLI) | payer MEDICARE, OTHER ==
[2019-03-14 20:27] VITALS: BMI 23.2
[~2019-05-27 15:28] MED LIST changes: +CHRONULAC30 ML PO
== END | disposition home or self-care (01) ==
LOC: D.LABREF 15:28
PROVIDERS: ATTEND Urology
DX: R82.90 Unspecified abnormal findings in urine (principal)

== ENCOUNTER → 2019-05-31 14:47 | Outpatient (CLI) | payer MEDICARE, OTHER ==
[2019-03-14 20:27] VITALS: BMI 23.2
== END | disposition home or self-care (01) ==
LOC: D.LABREF 14:47
PROVIDERS: ATTEND Urology
DX: N39.0 Urinary tract infection, site not specified (principal)

== ENCOUNTER → 2019-06-10 19:49 | Outpatient (CLI) | payer MEDICARE, OTHER ==
[2019-03-14 20:27] VITALS: BMI 23.2
== END | disposition home or self-care (01) ==
LOC: D.LABREF 19:49
PROVIDERS: ATTEND Urology
DX: N39.0 Urinary tract infection, site not specified (principal)

== ENCOUNTER 2019-06-16 05:10 | Day surgery (SDC) | payer MEDICARE, OTHER ==
[2019-06-14 12:10] LABS: HEMATOCRIT 42.3 % (36.0-48.0); HEMOGLOBIN 13.9 g/dL (12-16); MCH 29.4 pg (26.0-34.0); MCHC 32.9 g/dL (31.0-37.0); MCV 89.4 fL (80.0-100.0); MEAN PLATELET VOLUME 10.3 fL (7.4-10.4); RBC 4.73 10x6/uL (4.00-5.40); RDW 14.4 % (11.5-14.5); WBC 3.8 10x3/uL (4.8-10.8)
[2019-06-14 12:32] LABS: ANION GAP 9.6 mmol/L (8-16); CALCIUM 9.2 mg/dL (8.5-10.1); CARBON DIOXIDE 29.2 mmol/L (21.0-32.0); CREATININE - SERUM 0.8 mg/dL (0.6-1.3); POTASSIUM - SERUM 3.8 mmol/L (3.5-5.1)
[~2019-06-16] VITALS: Ht 170.2 cm; Wt 65.8 kg
[2019-06-16 06:35] VITALS: Ht 170.2 cm; Wt 65.8 kg
--- NOTE | 2019-06-16 09:09 | NUR ---
OPA IN AIRWAY ON ADMIT
--- NOTE | 2019-06-16 09:10 | NUR ---
SCOPE PATCH BEHIND RT EAR ON ADMIT
--- NOTE | 2019-06-16 09:42 | OP ---
PATIENT NAME: ELIDA MCKEON MEDICAL RECORD: [id number] :42 LOCATION:D.OPS ADMISSION DATE: SURGEON: JONI DUVALL MD DATE OF OPERATION: 06/16/2019 SURGEON: Joni Duvall MD. ANESTHESIA: General anesthesia by Ab Adkins CRNA DIAGNOSIS: Incomplete bladder emptying. PROCEDURE: Cystoscopy and urethrolysis. FINDINGS: On cystoscopy, no bladder or urethral injury. No bladder tumors. Single ureteral orifices bilaterally. ESTIMATED BLOOD LOSS: None. CLINICAL HISTORY: This is a 79-year-old female who had a pubovaginal sling with mesh, cystocele, and rectocele repair on 06/10/2019. She has incomplete bladder emptying and recurrent urinary tract infections due to the incomplete bladder emptying. She also has urge incontinence. There is no stress incontinence. I had performed a urethral dilation in the office and it did not help. Her postvoid residuals in the office 301 mL and after had to void again it was 146 mL. The sling is too tight and the plan is to loosen the sling by cutting one side, which was the urethrolysis. SHE IS ALLERGIC TO ASPIRIN AND MORPHINE. She was given Ancef forestry extension specialist to the OR. DESCRIPTION OF PROCEDURE: The patient was given induction of general anesthesia in supine position. She was then placed into lithotomy position and prepped and draped. A 16-Bulgarian Elena catheter was inserted into the bladder. A weighted speculum was used to hold down the posterior vaginal wall. The labia majora were retracted laterally using #1 nylon sutures anchored to the medial thighs. The vertical incision was made in the anterior vaginal wall midline after hydrodissecting this region of the anterior vaginal wall with Pitressin solution. Twenty units of vasopressin was dissolved in 100 mL of injectable normal saline and this was used for hydrodissection. After the vertical incisions was made, Metzenbaum scissors were used to dissect the vaginal mucosal flaps. I initially started with tenotomy scissors. While I was dissecting the mucosal flaps, I uncovered the mesh graft. This ended up being divided in the mid urethra during the dissection. I continued the dissection on to the left side. With Metzenbaum scissors, I made sure that the entire left side of the urethra was completely free of any adhesions. At this point, the vaginal mucosa was then closed using running 4-0 Monocryl. The Elena catheter was removed and cystoscopy was performed using a 17-Bulgarian cystoscope. No bladder injury was seen. The bladder was left partly full with normal saline. Suprapubic pressure could elicit leakage per the urethra. The catheter was left out. Vaginal packing was inserted into the vagina. This was 2-inch Kerlix infiltrated with estrogen cream. This will be removed prior to the patient going home today. The stay sutures were removed and the patient was awakened and brought to the recovery room. TRANSINT:[id number] Voice Confirmation ID: [id number] DOCUMENT ID: [id number] OPERATIVE REPORT [id number] ELIDA MCKEON ROBERT S MD at 0942 CC: [id number] DICTATION DATE: 06/16/19858 CNC MILL PROGRAMMER: 06/16/19 0939 PRE [facility] [address] [place] [address]
--- NOTE | 2019-06-16 13:16 | NUR ---
0932-REC'D FROM SURGERY. AWAKE AND ALERT. VSS. DENIES PAIN. IV PATENT TO RIGHT ARM AT O. REVIEWED DISCHARGE CRITERIA.
--- NOTE | 2019-06-16 13:17 | NUR ---
0945-FULL LIQUID TRAY TO ROOM.
--- NOTE | 2019-06-16 13:18 | NUR ---
1005-ASSISTED PT TO RESTROOM,ABLE TO AMBULATE WITH SLOW STEADY GAIT.VSS. PACKING STILL IN PLACE. PLEASANT TO CARE FOR
--- NOTE | 2019-06-16 13:19 | NUR ---
1100-TOLERATED TRAY. VSS. AMBULATED TO RESTROOM TO URINATE WITHOUT SUCCESS. IV FLUIDS PATENT AT KVO.
--- NOTE | 2019-06-16 13:20 | NUR ---
1125-TO ROOM TO CHECK ON PT. HER FAMILY MEMBER AT BEDSIDE REPORTS SHE HAS NEVER BEEN ABLE TO URINATE AFTER ANYSURGERY. SHE ALWAYS GOES HOME WITH A CATHETER. ENCOURAGED PT TO ALWAYS LET THE NURSE AND STAFF KNOW THIS PROBLEM SHE HAS AFTER SURGERY. VERBALIZED UNDERSTANDING
--- NOTE | 2019-06-16 13:23 | NUR ---
1225-USING STERILE TECHNIQUE PLACED 16FR 10CC WITH GOOD YELLOW URINE RETURN APPROXIMATELY 700CC OUTPUT AT THIS TIME.
--- NOTE | 2019-06-16 13:23 | NUR ---
1200-PER BLADDER SCAN PT HAS 713 CC OF URINE IN BLADDER.
--- NOTE | 2019-06-16 13:24 | NUR ---
1245-PT REQUEST LEG BAG. CHANGED HA BAG TO LEG BAG. EMPTIED A TOTAL OF 1000 CC OF URINE. REVIEWED HA CARE WITH PT. VERBALIZED UNDERSTANDING. IV REMOVED WITH CATH INTACT,DISPOSED INTO SHARPS,COVERED WITH GUAZE,SECURED WITH MEDIPORE TAPE.
--- NOTE | 2019-06-16 13:27 | NUR ---
1250-REVIEWED POST OPERATIVE INSTRUCTIONS AND FOLLOW UP-VERBALIZED UNDERSTANDING. DRESSED AND READY TO GO. ESCORTED OUT VIA W/C BY STAFF WITH FRIEND AWAITING TO DRIVE HOME.
== END 2019-06-16 12:50 | disposition home or self-care (01) ==
LOC: D.OPS 05:10 → D.PAN 07:30 → D.OPS 07:30 → D.PAN 12:10 → D.OPS 12:10
PROVIDERS: Anesthesiology; ATTEND Urology
DX: R33.9 Retention of urine, unspecified (principal); K21.9 Gastro-esophageal reflux disease without esophagitis; N30.00 Acute cystitis without hematuria; N99.89 Other postprocedural complications and disorders of genitourinary system

== ENCOUNTER → 2019-07-20 20:52 | Outpatient (CLI) | payer MEDICARE, OTHER ==
[2019-06-16 06:35] VITALS: BMI 23.0
== END | disposition home or self-care (01) ==
LOC: D.LABREF 20:52
PROVIDERS: ATTEND Urology
DX: R82.90 Unspecified abnormal findings in urine (principal)

== ENCOUNTER → 2019-07-28 09:38 | Outpatient (CLI) | payer MEDICARE, OTHER ==
[2019-06-16 06:35] VITALS: BMI 23.0
== END | disposition home or self-care (01) ==
LOC: D.US 09:38
PROVIDERS: ATTEND Surgery
DX: R10.31 Right lower quadrant pain (principal)

== ENCOUNTER → 2019-08-03 16:53 | Outpatient (CLI) | payer MEDICARE, OTHER ==
[2019-06-16 06:35] VITALS: BMI 23.0
== END | disposition home or self-care (01) ==
LOC: D.LABREF 16:53
PROVIDERS: ATTEND Urology
DX: R31.9 Hematuria, unspecified (principal)

== ENCOUNTER → 2019-09-29 14:13 | Outpatient (CLI) | payer MEDICARE, OTHER ==
[2019-06-16 06:35] VITALS: BMI 23.0
== END | disposition home or self-care (01) ==
LOC: D.MRI 14:13
PROVIDERS: ATTEND Family Medicine
DX: M54.16 Radiculopathy, lumbar region (principal)

== ENCOUNTER → 2020-10-10 07:24 | Outpatient (CLI) | payer MEDICARE, OTHER ==
[2019-06-16 06:35] VITALS: BMI 23.0
[2020-10-10 08:18] LABS: ALBUMIN 3.7 g/dL (3.4-5.0); BILIRUBIN - DIRECT 0.18 mg/dL (0.00-0.30); BILIRUBIN - INDIRECT 0.39 mg/dL (0.00-1.00); BILIRUBIN - TOTAL 0.57 mg/dL (0.2-1.3)
== END | disposition home or self-care (01) ==
LOC: D.US 07:24
PROVIDERS: ATTEND Internal Medicine Gastroenterology
DX: R16.0 Hepatomegaly, not elsewhere classified (principal); K76.89 Other specified diseases of liver